=== PATIENT | female | born 1985 | race Two or more races ===

== ENCOUNTER → 2022-08-20 | Outpatient (CLI) | payer OTHER | LOC: M WHC 10:09 | PROVIDERS: ATTEND Advanced Practice Midwife | DX: Z36.89 Encounter for other specified antenatal screening (principal); Z3A.21 21 weeks gestation of pregnancy ==

== ENCOUNTER 2022-12-27 07:38 | Inpatient (IN) | payer OTHER ==
[~2022-12-27] VITALS: Ht 160 cm; Wt 86.9 kg
[2022-12-27] VITALS (7 sets, daily range): BP systolic 121–137; BP diastolic 63–79
[~2022-12-27 07:38] MED LIST: PREN1TAB11 PO
[2022-12-27] MEDS ORDERED: HOME MED LIST COMPLETE! XX SCH (07:55)
[2022-12-27] MEDS ORDERED: ceFAZolin SOD 2 GM in IV 1 EA IV ONE (08:25)
[2022-12-27] MEDS ORDERED: BICITRA 30ML SOLN UDC PO ONE (08:25)
[2022-12-27] MEDS ORDERED: LR 1,000 ML IV SCH (08:30)
[2022-12-27] MEDS ORDERED: LR 1,000 ML IV ONE (08:30)
[2022-12-27 08:38] LABS: HEMOGLOBIN 12.7 g/dl (12.0-15.5); MEAN CORPUSCULAR HEMOGLOBIN 30.5 pg (27.0-33.0); MEAN CORPUSCULAR HGB CONC 33.4 g/dl (32.0-36.5); MEAN CORPUSCULAR VOLUME 91.1 fl (80.0-96.0); PLATELET COUNT, AUTOMATED 214 10^3/uL (150-450); RED BLOOD COUNT 4.17 10^6/uL (4.00-5.40); WHITE BLOOD COUNT 6.4 10^3/uL (4.0-10.0)
[2022-12-27] MEDS: PRENATAL VITAMINS CHEWABLE TABLET PO SCH (09:00)
[2022-12-27] MEDS ORDERED: OXYTOCIN 30UNITS IN 0.9% NaCl 500ML IV BAG As Ordered ONE ×3 (10:53→12:33)
[2022-12-27] MEDS ORDERED: MORPHINE PRES-FREE INJ 10 MG/10 ML VIAL As Ordered ONE (10:53)
[2022-12-27] MEDS ORDERED: ONDANSETRON 4MG 2ML VIAL As Ordered ONE ×2 (10:53→12:28)
[2022-12-27] MEDS ORDERED: PHENYLephrine 500MCG 5ML (100MCG/ML) SYRINGE As Ordered ONE (10:53)
[2022-12-27] MEDS ORDERED: KETOROLAC 60MG 2ML VIAL As Ordered ONE (10:53)
[2022-12-27] MEDS ORDERED: ACETAMINOPHEN 1000MG 100ML IV BAG As Ordered ONE (10:53)
[2022-12-27] MEDS ORDERED: METOCLOPRAMIDE INJ 10MG/2ML VIAL As Ordered ONE (11:21)
[2022-12-27] MEDS ORDERED: ePHEDrine SULFATE 25 MG/5 ML(5MG/ML) SYRINGE As Ordered ONE (11:25)
[2022-12-27 11:26] LABS: CORD GAS ABE V -3.5; CORD GAS HCO3 V 20.4 MEQ/L; CORD GAS O2 SAT V 98.9 %; CORD GAS PCO2 V 33.1 mmHg; CORD GAS PH V 7.407 UNITS; CORD GAS PO2 V 98.6 mmHg; CORD GAS SBC V 21.6 MEQ/L; CORD GAS TCO2 V 21.4 MEQ/L
[2022-12-27] MEDS ORDERED: HYDROMORPHONE HCL 0.5 MG/ 0.5 ML SYRINGE IV PRN (12:05)
[2022-12-27] MEDS ORDERED: fentaNYL 100 MCG/2 ML INJECTION IV PRN (12:05)
[2022-12-27] MEDS ORDERED: NALOXONE INJ 0.4MG/1ML VIAL IV PRN ×2 (12:05)
[2022-12-27] MEDS ORDERED: SLF 3 ML SYR IV SCH (12:05)
[2022-12-27] MEDS ORDERED: diphenhydrAMINE 50MG/ML VIAL IV PRN (12:05)
[2022-12-27] MEDS ORDERED: MEPERIDINE 25 MG/ML 1ML VIAL IV PRN (12:05)
[2022-12-27] MEDS ORDERED: oxyCODONE 5MG TAB PO PRN ×3 (12:05→13:55)
[2022-12-27] MEDS ORDERED: METOCLOPRAMIDE INJ 10MG/2ML VIAL IV PRN (12:05)
[2022-12-27] MEDS ORDERED: **NOTE PATIENT COMMENT** MISC XX SCH (12:05)
[2022-12-27] MEDS ORDERED: ONDANSETRON 4MG 2ML VIAL IV PRN (12:05)
[2022-12-27] MEDS ORDERED: OXYTOCIN DRIP 30 UNITS in IV 1 EA IV SCH (12:25)
[2022-12-27] MEDS ORDERED: PROMETHAZINE 25MG/ML 1ML VIAL IV ONE (12:45)
[2022-12-27] MEDS ORDERED: PROMETHAZINE 25MG/ML 1ML VIAL As Ordered ONE (12:51)
[2022-12-27] MEDS ORDERED: oxyCODONE 5MG TAB As Ordered ONE (13:11)
[2022-12-27] MEDS ORDERED: SIMETHICONE 80MG CHEW TAB PO PRN (13:55)
[2022-12-27] MEDS ORDERED: RHOGAM 300MCG (1500IU) INJ IM SCH (13:55)
[2022-12-27] MEDS: KETOROLAC 30 MG/ML 1ML VIAL IV SCH ×2 (17:59→23:52)
[2022-12-27] MEDS: DOCUSATE SODIUM 100MG CAPSULE PO SCH (21:27)
[2022-12-28 06:00] VITALS: BP 121/69
[2022-12-28] MEDS: KETOROLAC 30 MG/ML 1ML VIAL IV SCH (06:01)
[2022-12-28 06:33] LABS: HEMATOCRIT 25.9 % (36.0-47.0); MEAN CORPUSCULAR HEMOGLOBIN 30.1 pg (27.0-33.0); MEAN CORPUSCULAR HGB CONC 33.6 g/dl (32.0-36.5); MEAN CORPUSCULAR VOLUME 89.6 fl (80.0-96.0); PLATELET COUNT, AUTOMATED 193 10^3/uL (150-450); RED BLOOD COUNT 2.89 10^6/uL (4.00-5.40); WHITE BLOOD COUNT 17.2 10^3/uL (4.0-10.0)
[2022-12-28 06:50] LABS: HEMOGLOBIN 8.7 g/dl (12.0-15.5)
[2022-12-28] MEDS: PRENATAL VITAMINS CHEWABLE TABLET PO SCH (08:06)
[2022-12-28] MEDS: DOCUSATE SODIUM 100MG CAPSULE PO SCH ×2 (08:06→21:35)
[2022-12-28] MEDS ORDERED: PRENATAL VITAMINS CHEWABLE TABLET PO SCH (09:00)
[2022-12-28] MEDS: IBUPROFEN 800 MG TAB PO SCH ×2 (13:58→21:36)
[2022-12-28 18:00] VITALS: BP 116/57
[2022-12-29] MEDS: IBUPROFEN 800 MG TAB PO SCH (05:58)
[2022-12-29 06:00] VITALS: BP 121/59
[2022-12-29] MEDS: PRENATAL VITAMINS CHEWABLE TABLET PO SCH (07:49)
[2022-12-29] MEDS: DOCUSATE SODIUM 100MG CAPSULE PO SCH (07:50)
[2022-12-29] MEDS ORDERED: MEASLES,MUMPS,RUBELLA VACCINE INJ (MMR-II) SC.IMMUN ONE (09:00)
== END 2022-12-29 15:15 | disposition home or self-care (01) | DRG 773 ==
LOC: M LDI 07:38 → M OBS 14:00
PROVIDERS: ADMIT Obstetrics & Gynecology; ATTEND Obstetrics & Gynecology
PROC: 10D00Z1 Extraction of Products of Conception, Low, Open Approach (ICD-10-PCS; principal; 2022-12-27 09:45)
DX: O34.211 Maternal care for low transverse scar from previous cesarean delivery (principal); O48.0 Post-term pregnancy; Z3A.40 40 weeks gestation of pregnancy; Z37.0 Single live birth; O69.81X0 Labor and delivery complicated by cord around neck, without compression, not applicable or unspecified

== ENCOUNTER → 2024-03-05 | Outpatient (CLI) | payer OTHER | LOC: M WHC 07:36 | PROVIDERS: ATTEND Obstetrics & Gynecology | DX: Z12.31 Encounter for screening mammogram for malignant neoplasm of breast (principal); Z80.3 Family history of malignant neoplasm of breast ==

== ENCOUNTER → 2024-03-26 | Outpatient (CLI) | payer OTHER | LOC: M WHC 14:12 | PROVIDERS: ATTEND Obstetrics & Gynecology | DX: Z12.31 Encounter for screening mammogram for malignant neoplasm of breast (principal); Z80.3 Family history of malignant neoplasm of breast | CPT/HCPCS: 77065; G0279 ==